=== PATIENT | female | born 1985 | race Two or more races ===

== ENCOUNTER 2023-05-17 03:26 | Emergency (ER) | payer OTHER ==
[~2023-05-17] VITALS: Ht 170.2 cm; Wt 123.8 kg
[2023-05-17] MEDS ORDERED: ADULT LOW DOSE81 M1 (03:32)
[2023-05-17] MEDS ORDERED: PRENATABS RX T1 EACH (03:32)
== END 2023-05-17 06:54 | disposition home or self-care (01) ==
LOC: ER 03:26
DX: O26.851 Spotting complicating pregnancy, first trimester (principal); Z3A.11 11 weeks gestation of pregnancy

== ENCOUNTER 2023-06-17 12:59 | Emergency (ER) | payer OTHER ==
[~2023-06-17] VITALS: Ht 170.2 cm; Wt 118.8 kg
[~2023-06-17 12:59] MED LIST: ADULT LOW DOSE81 M1; PRENATABS RX T1 EACH
[2023-06-17 15:02] LABS: HEMATOCRIT 38.8 % (36.0-45.00); HEMOGLOBIN 13.8 g/dL (12.0-15.00); MEAN CORPUSCULAR HEMOGLOBIN 31.7 pg (27.00-32.0); MEAN CORPUSCULAR HGB CONC 35.6 g/dl (32.0-36.0); PLATELET COUNT 185 K/uL (150-450); RED BLOOD COUNT 4.36 M/uL (4.00-6.00); RED CELL DISTRIBUTION WIDTH 14.2 % (11.5-14.5)
[2023-06-17 15:28] LABS: CALCIUM 9.2 mg/dL (8.5-10.1); CREATININE SERUM 0.56 mg/dL (0.55-1.02); GFR 122.49; POTASSIUM 3.61 mEq/L (3.5-5.1)
[2023-06-17 15:34] LABS: PH,URINE 5.5 (5.0-8.0); URINE APPEARANCE Cloudy; URINE BILIRRUBIN Negative (NEGATIVE); URINE BLOOD Negative; URINE COLOR Yellow; URINE GLUCOSE Negative (NEGATIVE); URINE LEUKOCYTE Trace; URINE NITRATE Positive; URINE PROTEIN Negative (NEGATIVE); URINE UROBILINOGEN 0.2 E.U./dl
[2023-06-17 15:40] LABS: URINE EPITHELIAL CELLS 43.7 uL (0.0-38.8); URINE RBC 3.1 uL (0.0-20.8)
[2023-06-17 16:05] LABS: URINE MUCUS SCANT
[2023-06-17 16:09] LABS: URINE BACTERIA > 9821.5 uL (0.0-1933)
[2023-06-17] MEDS ORDERED: INTESTINEX680 M1 PO (16:49)
[2023-06-17] MEDS ORDERED: ONDANSETRON HCL4 MG PO (16:49)
== END 2023-06-17 17:27 | disposition home or self-care (01) ==
LOC: ER 12:59
PROVIDERS: Nurse Practitioner Family
DX: O23.32 Infections of other parts of urinary tract in pregnancy, second trimester (principal); N39.0 Urinary tract infection, site not specified; Z3A.14 14 weeks gestation of pregnancy